=== PATIENT | male | born 2000 | race Caucasian/White ===

== ENCOUNTER 2020-11-06 13:54 | Emergency (ER) | payer OTHER, SELFPAY ==
--- NOTE | ~2020-11-06 | US_ITS ---
EXAMINATION: US scrotum doppler EXAM DATE: 11/06/2020 15:09 INDICATION: Scrotal pain. TECHNIQUE: Multiple grayscale and Doppler images of the testicles and scrotum were obtained bilateral ly. There is no prior study for comparison. FINDINGS: Right testicle measures 3.9 x 2.2 x 2.2 cm and is morphologically normal. Low resistance Doppler rishi w confirmed. The epididymis is unremarkable. There is no hydrocele or varicocele. Left testicle measures 3.7 x 2.2 x 2.6 cm and is morphologically normal. Low resistance Doppler flow confirmed. The epididymis is unremarkable. There is no hydrocele or varicocele. IMPRESSION: 1. Unremarkable testicular/scrotal ultrasound exam. Reviewed, dictated and finalized at location B.
[2020-11-06 13:58] VITALS: BP 137/84; PULSE 81; RESP 16; TEMP 37.1; O2SAT 99
[2020-11-06 16:13] VITALS: BP 132/85; PULSE 64; RESP 20; O2SAT 97
[2020-11-06] MEDS: KETOROLAC (*BKC) 60 MG/2 ML VIAL IM (16:19)
[2020-11-06 17:12] LABS: Add Urine Microscopic? YES; Appearance Urine Cloudy (Clear); Bilirubin Urine Negative (Negative); Blood Urine Negative (Negative); Color Urine Yellow (Yellow); Glucose Urine UA Negative (Negative); Ketones Urine Negative (Negative); Leukocyte Esterase Ur Negative LEU/UL (Negative); Mucus Urine Heavy /lpf; Nitrate Urine Negative (Negative); Protein Urine 1+ mg/dL (Negative); RBC Urine 0-2 /hpf (0-2); Specific Grav Ur 1.027 (1.001-1.035); Squamous Epithelial Cell Urine Rare /hpf (Few); Urobilinogen Urine Negative mg/dL (<2.0)
--- NOTE | 2020-11-06 18:12 | ED.MALEGU ---
HPI - Male Genitourinary General Chief complaint: Urogenital-Male Stated complaint: right testicle pain Time Seen by Provider: 11/06/20 15:28 History of Present Illness HPI Narrative: Patient is a 20-year-old male with history of depression who presents ER with right-sided testicular pain. Began yesterday while standing and working. It is a aching pain that goes into the back of his testicle. No dysuria or urinary frequency urgency. No hematuria. No flank pain. He has no history of kidney stones. Denies concern for sexually transmitted flexion and is without urethral discharge. Was referred here from urgent care. Related Data Home Medications Medication Instructions Recorded Confirmed escitalopram oxalate 20 mg PO DAILY 11/06/20 11/06/20 Allergies Allergy/AdvReac Type Severity Reaction Status Date / Time No Known Allergies Allergy Verified 11/06/20 16:18 Review of Systems Review of Systems: All systems reviewed & are unremarkable except as noted in HPI and below Constitutional: Constitutional: Denies chills, Denies fever(s) and Denies weakness Gastrointestinal: Gastrointestinal: Denies abdominal pain, Denies nausea and Denies vomiting Genitourinary: Genitourinary: Denies genital lesions, Denies dysuria, Denies penile discharge, Reports testicular pain and Denies urinary frequency PMFSH Past Medical History Medical History (Updated 11/06/20 @ 18:15 by Fernandez Vargas MD) Depression Surgical History Surgical History (Updated 11/06/20 @ 18:13 by Fernandez Vargas MD) No pertinent past surgical history Social History Social History (Updated 11/06/20 @ 18:13 by Fernandez Vargas MD) Smoking status: Never smoker Gender identity (if verbalized by the patient): Male Exam Narrative: Exam Narrative: GENERAL: Well-appearing, well-nourished, and in no acute distress. HEAD: Normocephalic, atraumatic. : Normal external genitalia with uncircumcised penis. Left testicle nontender. Right testicle with epididymal tenderness without swelling. No inguinal hernia on exam. EXTREMITIES: Normal range of motion. No edema. SKIN: Warm, dry, no rash. NEURO: Alert and oriented x3. PSYCH: Normal mood and affect. Course Course Emergency Course: Unremarkable evaluation. Recommend tight fitting underwear/jockstrap and taking anti-inflammatory medication. Vital Signs Vital signs: Vital Signs Temperature 98.8 F 11/06/20 13:58 Pulse Rate 81 11/06/20 13:58 Respiratory Rate 16 11/06/20 13:58 Blood Pressure 137/84 11/06/20 13:58 Pulse Oximetry 99 11/06/20 13:58 Temperature 98.8 F 11/06/20 13:58 Pulse Rate 64 11/06/20 16:13 Respiratory Rate 20 11/06/20 16:13 Blood Pressure 132/85 11/06/20 16:13 Pulse Oximetry 97 11/06/20 16:13 MDM - Male Genitourinary Lab Data Labs: Lab Results 11/06/20 Range/Units 16:45 Urine Color Yellow (Yellow) Urine Appearance Cloudy H (Clear) Urine pH 5.0 (5.0-9.0) Ur Specific [place] 1.027 (1.001-1.035) Urine Protein 1+ H (Negative) mg/dL Urine Glucose (UA) Negative (Negative) mg/dL Urine Ketones Negative (Negative) mg/dL Ur Blood (Man) Negative (Negative) Urine Nitrate Negative (Negative) Urine Bilirubin Negative (Negative) Urine Urobilinogen Negative (<2.0) mg/dL Leukocyte Esterase Rfl Negative (Negative) MAURO/UL Urine RBC 0-2 (0-2) /hpf Urine WBC 4-6 H /hpf Ur Squamous Epith Cells Rare (Few) /hpf Urine Mucus Heavy H /lpf Imaging Data Radiologist's impression: ITS Impressions Scrotum Ultrasound 11/06/20 15:10 IMPRESSION: 1. Unremarkable testicular/scrotal ultrasound exam. Discharge Plan Discharge Clinical Impression: Pain in right testicle Patient Disposition: Home, Self-Care Condition: Stable Instructions: Testicle Pain (ED) Additional Instructions: Return the ER if you have chest pain or shortness of breath, you cannot keep jarvis
[2020-11-06 18:25] VITALS: BP 131/78; PULSE 62; RESP 16; O2SAT 100
== END 2020-11-06 18:27 | disposition home or self-care (01) ==
PROVIDERS: Emergency Provider Emergency Medicine; PCP Registered Nurse
DX: N50.811 Right testicular pain (principal); F32.9 Major depressive disorder, single episode, unspecified
CPT/HCPCS: 76870; 81001; 93976; 99284; J1885